=== PATIENT | male | born 1980 | race Caucasian/White ===

== ENCOUNTER 2019-06-27 13:51 | Emergency (ER) | payer BC ==
--- NOTE | 2019-06-27 14:00 | Emergency Department Record ---
History of Present Illness - General Chief complaint: Flank Pain Stated complaint: FLANK PAIN Time Seen by Provider: 06/27/19 14:00 Source: Patient Mode of Arrival: Ambulatory Limitations: No limitations - History of Present Illness Initial comments: pt here for l flank pain. he was at [facility] last night. they checked a urine and gave the pt a screen to strain urine and pain pills and flomax. there was no ct done and no labs done. MD Complaint: Other Location: Left flank Radiation: Suprapubic Severity: Moderate Quality: Aching Consistency: Constant Improves with: Medication Worsens with: None Reports: Nausea/vomiting - Related Data Home Medications Medication Instructions Recorded Confirmed Last Taken Aspirin [Aspirin EC] 81 mg PO DAILY 06/27/19 06/27/19 1 Day Ago ~06/26/19 Metoprolol Succinate [Toprol Xl] 25 mg PO DAILY 06/27/19 06/27/19 1 Day Ago ~06/26/19 Previous Rx's Medication Instructions Recorded Hydrocodone/Acetaminophen [[place] 1 each PO Q6HR #12 tablet 06/27/19 5-325 Tablet] Allergies Allergy/AdvReac Type Severity Reaction Status Date / Time codeine Allergy VOMITING Verified 06/27/19 14:06 Review of Systems Reviewed: No additional complaints except as noted below Constitutional: Reports: As per HPI. Denies: Chills, Fever, Malaise, Night sweats, Weakness, Weight change Eyes: Reports: As per HPI. Denies: Eye discharge, Eye pain, Photophobia, Vision change ENT: Reports: As per HPI. Denies: Congestion, Dental pain, Ear pain, Epistaxis, Hearing loss, Throat pain Respiratory: Reports: As per HPI. Denies: Cough, Dyspnea, Hemoptysis, Stridor, Wheezes Cardiovascular: Reports: As per HPI. Denies: Arrhythmia, Chest pain, Dyspnea on exertion, Edema, Murmurs, Orthopnea, Palpitations, Paroxysmal nocturnal dyspnea, Rheumatic Fever, Syncope Endocrine: Reports: As per HPI. Denies: Fatigue, Heat or cold intolerance, Polydipsia, Polyuria Gastrointestinal: Reports: As per HPI, Nausea. Denies: Abdominal pain, Constipation, Diarrhea, Hematemesis, Hematochezia, Melena, Vomiting Genitourinary: Reports: As per HPI. Denies: Dysuria, Frequency, Hematuria, Incontinence, Retention, Testicular pain, Testicular mass, Urgency Musculoskeletal: Reports: As per HPI. Denies: Arthralgia, Back pain, Gout, Joint swelling, Myalgia, Neck pain Skin: Reports: As per HPI. Denies: Bruising, Change in color, Change in hair/nails, Lesions, Pruritus, Rash Neurological: Reports: As per HPI. Denies: Abnormal gait, Confusion, Headache, Numbness, Paresthesias, Seizure, Tingling, Tremors, Vertigo, Weakness Psychiatric: Reports: As per HPI. Denies: Anxiety, Auditory hallucinations, Depression, Homicidal thoughts, Suicidal thoughts, Visual hallucinations Hematological/Lymphatic: Reports: As per HPI. Denies: Anemia, Blood Clots, Easy bleeding, Easy bruising, Swollen glands Past Medical History - SOCIAL HISTORY Smoking Status: Never smoker Alcohol Use: None Drug Use: None Family Medical History Any Significant Family History?: No Physical Exam - General General Appearance: Alert, Oriented x3, Cooperative, Moderate distress - Head Head exam: Normal inspection - Eye Eye exam: Normal appearance, PERRL, EOMI Pupils: Normal accommodation - ENT ENT exam: Normal exam, Mucous membranes moist, Normal external ear exam, Normal orophraynx Ear exam: Normal external inspection. negative: External canal tenderness Nasal Exam: Normal inspection. negative: Discharge, Sinus tenderness Mouth exam: Normal external inspection, Tongue normal Teeth exam: Normal inspection. negative: Dental caries Throat exam: Normal inspection. negative: Tonsillar erythema, Tonsillar exudate - Neck Neck exam: Normal inspection, Full ROM. negative: Tenderness - Respiratory Respiratory exam: Normal lung sounds bilaterally. negative: Respiratory distress - Cardiovascular Cardiovascular Exam: Regular rate, Normal rhythm, Normal heart sounds - GI/Abdominal GI/Abdominal exam: Soft, Normal bowel sounds. negative: Tenderness - Rectal Rectal exam: Deferred - exam: Deferred - Extremities Extremities exam: Normal inspection, Full ROM, Normal capillary refill. negative: Tenderness - Back Back exam: Reports: Normal inspection, Full ROM. Denies: Muscle spasm, Rash noted, Tenderness - Neurological Neurological exam: Alert, CN II-XII intact, Normal gait, Oriented X3 - Psychiatric Psychiatric exam: Normal affect, Normal mood - Skin Skin exam: Dry, Intact, Normal color, Warm Course - Reevaluation(s) Reevaluation #1: 06/27/19 16:19 pt feels better Medical Decision Making - Lab Data Result diagrams: 06/27/19 14:20 06/27/19 14:20 Disposition Disposition: Discharge Clinical Impression: Renal lithiasis Hydronephrosis Qualifiers: Hydronephrosis type: with ureteral calculous obstruction Qualified Code(s): N13.2 - Hydronephrosis with renal and ureteral calculous obstruction Disposition: Home, Self-Care Condition: (1) Good Instructions: Kidney Stones (ED), How to Strain Your Urine (ED) Additional Instructions: continue flomax. push fluids. continue norco as needed. follow up with dr smith. return sooner if worse. Prescriptions: Hydrocodone/Acetaminophen [[place] 5-325 Tablet] 1 each PO Q6HR #12 tablet Forms: Patient Portal Access Quality - Quality Measures Quality Measures: N/A - Blood Pressure Screening Does Patient Have Any of the Following: Active Dx of HTN Blood Pressure Classification: Hypertensive Reading Systolic Measurement: 183 Diastolic Measurement: 122 Screening for High Blood Pressure: Patient Exclusion, Hx of HTN [G9744]
[2019-06-27] MEDS ORDERED: ONDANSETRON HCL IV 4 MG/2 ML VIAL IV ONE (14:29)
[2019-06-27] MEDS ORDERED: KETOROLAC 30 MG/ML VIAL IVP ONE (14:29)
[2019-06-27] MEDS ORDERED: 0.9 % SODIUM CHLORIDE 1,000 ML BAG IV ONE ×2 (14:29→16:03)
[2019-06-27 14:39] LABS: ABSOLUTE NEUTROPHIL COUNT 8.81; BASO % 0.2 % (0-6); EOS % 1.8 % (0-6); GRAN % 68.3 % (47-80); HEMATOCRIT 47.4 % (42.0-52.0); LYMPH % 20.8 % (16-45); MEAN CELL VOLUME 87.3 fl (81-97); MEAN CORPUSCULAR HEMOGLOBIN 29.5 pg (27-33); MEAN CORPUSCULAR HGB CONC 33.8 g/dl (32-36); MEAN PLATELET VOLUME 10.9 fl (7.4-10.4); MONO % 8.9 % (0-9); PLATELET COUNT 232 K/uL (130-400); RED BLOOD COUNT 5.43 M/uL (4.40-5.70); RED CELL DISTRIBUTION WIDTH 13.1 % (11.5-14.5); WHITE BLOOD COUNT W/O DIFF 12.9 K/uL (4.2-12.2)
[2019-06-27 14:50] LABS: BLOOD UREA NITROGEN 17 mg/dL (6-20); CREATININE 1.1 mg/dL (0.7-1.2); EST GLOMERULAR FILTRATION RATE > 60 mL/min
[2019-06-27 14:53] LABS: GLUCOSE,RANDOM 178 mg/dL (74-109)
--- NOTE | 2019-06-27 15:40 | CT SCAN REPORT ---
EXAMINATION: CT Abdomen and Pelvis without IV Contrast EXAM DATE: 06/27/2019 3:23 PM TECHNIQUE: Standard protocol CT imaging of the abdomen and pelvis was performed without intravenous c ontrast. INDICATION: Left flank pain. COMPARISON: None ENCOUNTER: Not applicable CT ABDOMEN AND PELVIS FINDINGS: Lung Bases: There is a small less than 6 mm nodule in the anterior right lung base. There is minimal coarse strandy/dependent basilar atelectasis. The imaged lung bases otherwise are clear. Hepatobiliary: There is diffuse fatty infiltration of the liver. The liver otherwise appears unremark able. Postop cholecystectomy. There is no biliary dilatation. Pancreas: Mildly atrophic and partially fatty replaced. Otherwise unremarkable. Spleen: Normal. 2 cm splenule along the medial aspect of the lower pole. Adrenals: Normal. Kidneys, Ureters, & Bladder: There are several nonobstructing calyceal renal stones, the largest in t he lower pole the right kidney measuring around 3 mm. On images 166-167 an approximately 3 mm stone i s seen in the distal left ureter at the ureteral vesicle junction. There is mild dilatation of the mo re proximal left renal collecting system. There is no right ureterolithiasis or any right obstructive uropathy. The urinary bladder appears normal. Gastrointestinal: The bowel pattern is nonobstructive. Postop appendectomy. There is no bowel wall th ickening. There are no acute gastrointestinal findings. Reproductive Organs: Unremarkable. No pelvic mass. Lymphatic System: No abdominal or pelvic lymphadenopathy. Vasculature: No abdominal aortic aneurysm. Peritoneum: No free air. No free fluid. Abdominal wall & Musculoskeletal: Unremarkable abdominal wall. No hernia. No mass. Mild arthrosis/spo ndylosis. No lytic or blastic bony lesions. No acute bony findings. Assessment of the solid organs, soft tissues, and vascular structures is overall limited on noncontra st imaging, IMPRESSION: 1. 3 mm left UVJ stone with associated mild left hydroureteronephrosis. 2. Bilateral nephrolithiasis. 3. Fatty liver. 4. Postop cholecystectomy and appendectomy. 5. Small nodule in the anterior right lung base. No follow-up for the nodule is indicated if the jimmy ent is low risk for lung cancer. If high risk, a follow-up low dose noncontrast CT examination of the chest in 12 months to assess stability of the nodule is optional. Dictated by: Dawson Belle MD on 06/27/2019 3:29 PM. .
[2019-06-27 16:09] LABS: URINE APPEARANCE CLEAR; URINE BILIRUBIN NEGATIVE (NEGATIVE); URINE BLOOD LARGE (NEGATIVE); URINE COLOR YELLOW; URINE GLUCOSE (UA) NEGATIVE (NEGATIVE); URINE KETONE NEGATIVE (NEGATIVE); URINE LEUKOCYTE ESTERASE NEGATIVE (NEGATIVE); URINE NITRITE NEGATIVE (NEGATIVE); URINE UROBILINOGEN 0.2 E.U./dL (0.20 - 1.00)
[2019-06-27] MEDS ORDERED: HYDROMORPHONE HCL 2 MG/ML VIAL IVP ONE (16:20)
[2019-06-27 16:21] LABS: URINE EPITHELIAL CELLS 0 - 2 (FEW); URINE WBC NONE SEEN (0-2/hpf)
--- NOTE | 2019-06-27 17:00 | Emergency Department Record ---
History of Present Illness - General Chief complaint: Flank Pain Stated complaint: FLANK PAIN Time Seen by Provider: 06/27/19 14:00 Source: Patient Mode of Arrival: Ambulatory Limitations: No limitations - History of Present Illness Onset/Timin -: Days(s) Location: Left flank Radiation: Suprapubic Severity: Moderate Severity scale (1-10): 9 Quality: Aching Consistency: Constant Improves with: Medication Worsens with: None Reports: Nausea/vomiting - Related Data Home Medications Medication Instructions Recorded Confirmed Last Taken Aspirin [Aspirin EC] 81 mg PO DAILY 06/27/19 06/27/19 1 Day Ago ~06/26/19 Metoprolol Succinate [Toprol Xl] 25 mg PO DAILY 06/27/19 06/27/19 1 Day Ago ~06/26/19 Previous Rx's Medication Instructions Recorded Hydrocodone/Acetaminophen [[place] 1 each PO Q6HR #12 tablet 06/27/19 5-325 Tablet] Allergies Allergy/AdvReac Type Severity Reaction Status Date / Time codeine Allergy VOMITING Verified 06/27/19 14:06 Travel Screening - Travel/Exposure Within Last 30 Days Have you traveled within the last 30 days?: No - Travel/Exposure Within Last Year Have you traveled outside the [place] in the last year?: No - Additonal Travel Details Have you been exposed to anyone with a communicable illness?: No - Travel Symptoms Symptom Screening: None Review of Systems Constitutional: Reports: As per HPI. Denies: Chills, Fever, Malaise, Night s weats, Weakness, Weight change Eyes: Reports: As per HPI. Denies: Eye discharge, Eye pain, Photophobia, Vision change ENT: Reports: As per HPI. Denies: Congestion, Dental pain, Ear pain, Epistaxis, Hearing loss, Throat pain Respiratory: Reports: As per HPI. Denies: Cough, Dyspnea, Hemoptysis, Stridor, Wheezes Cardiovascular: Reports: As per HPI. Denies: Arrhythmia, Chest pain, Dyspnea on exertion, Edema, Murmurs, Orthopnea, Palpitations, Paroxysmal nocturnal dyspnea, Rheumatic Fever, Syncope Endocrine: Reports: As per HPI. Denies: Fatigue, Heat or cold intolerance, Polydipsia, Polyuria Gastrointestinal: Reports: As per HPI, Nausea. Denies: Abdominal pain, Constipation, Diarrhea, Hematemesis, Hematochezia, Melena, Vomiting Genitourinary: Reports: As per HPI. Denies: Dysuria, Frequency, Hematuria, Incontinence, Retention, Testicular pain, Testicular mass, Urgency Musculoskeletal: Reports: As per HPI. Denies: Arthralgia, Back pain, Gout, Joint swelling, Myalgia, Neck pain Skin: Reports: As per HPI. Denies: Bruising, Change in color, Change in hair/nails, Lesions, Pruritus, Rash Neurological: Reports: As per HPI. Denies: Abnormal gait, Confusion, Headache, Numbness, Paresthesias, Seizure, Tingling, Tremors, Vertigo, Weakness Psychiatric: Reports: As per HPI. Denies: Anxiety, Auditory hallucinations, Depression, Homicidal thoughts, Suicidal thoughts, Visual hallucinations Hematological/Lymphatic: Reports: As per HPI. Denies: Anemia, Blood Clots, Easy bleeding, Easy bruising, Swollen glands Past Medical History - SOCIAL HISTORY Smoking Status: Never smoker Alcohol Use: None Drug Use: None - RESPIRATORY Hx Respiratory Disorders: No - CARDIOVASCULAR Hx Cardio Disorders: Yes Hx Hypertension: Yes Hx Irregular Heartbeat: Yes (a-fib) - NEURO Hx Neuro Disorders: No - GI Hx GI Disorders: No - Hx Genitourinary Disorders: Yes Hx Kidney Stones: Yes - ENDOCRINE Hx Endocrine Disorders: No Hx Diabetes: No Hx Thyroid Disease: No - MUSCULOSKELETAL Hx Musculoskeletal Disorders: Yes Hx Arthritis: Yes - PSYCH Hx Psych Problems: No - HEMATOLOGY/ONCOLOGY Hx Hematology/Oncology Disorders: No Family Medical History Any Significant Family History?: No Physical Exam - General Limitations: No limitations Course Vital Signs 06/27/19 06/27/19 14:00 16:13 Temperature 97.6 F Pulse Rate 90 Pulse Rate [ 75 Pulse Ox Probe] Respiratory 20 18 Rate Blood Pressure 183/122 Blood Pressure 142/84 [Right Arm] Pulse Ox 97 98 Medical Decision Making - Lab Data Result diagrams: 06/27/19 14:20 06/27/19 14:20 Lab Results 06/27/19 06/27/19 06/27/19 Range/Units 14:20 14:20 16:09 WBC 12.9 H (4.2-12.2) K/uL RBC 5.43 (4.40-5.70) M/uL Hgb 16.0 (14.0-18.0) gm/dl Hct 47.4 (42.0-52.0) % MCV 87.3 (81-97) fl MCH 29.5 (27-33) pg MCHC 33.8 (32-36) g/dl RDW 13.1 (11.5-14.5) % Plt Count 232 (130-400) K/uL MPV 10.9 H (7.4-10.4) fl Gran % 68.3 (47-80) % Lymphocytes % 20.8 (16-45) % Monocytes % 8.9 (0-9) % Eosinophils % 1.8 (0-6) % Basophils % 0.2 (0-6) % Absolute Neutrophils 8.81 Sodium 140 (136-145) mmol/L Potassium 3.8 (3.4-4.5) mmol/L Chloride 101 (98-107) mmol/L Carbon Dioxide 24.0 (22-29) mmol/L Anion Gap 15.0 (7-16) BUN 17 (6-20) mg/dL Creatinine 1.1 (0.7-1.2) mg/dL Estimated GFR > 60 mL/min Random Glucose 178 H (74-109) mg/dL Calcium 9.5 (8.6-10.0) mg/dL Urine Color Yellow Urine Appearance Clear Urine pH 5.5 (5.0-8.0) Ur Specific [place] >= 1.030 (1.002-1.030) Urine Protein 30 mg/dl H (NEGATIVE) Urine Glucose (UA) Negative (NEGATIVE) Urine Ketones Negative (NEGATIVE) Urine Blood Large H (NEGATIVE) Urine Nitrite Negative (NEGATIVE) Urine Bilirubin Negative (NEGATIVE) Urine Urobilinogen 0.2 (0.20 - 1.00) E.U./dL Ur Leukocyte Esterase Negative (NEGATIVE) Urine RBC 10 - 15 (NONE SEEN) Urine WBC None seen (0-2/hpf) Ur Epithelial Cells 0 - 2 (FEW) Disposition Disposition: Discharge Clinical Impression: Renal lithiasis Hydronephrosis Qualifiers: Hydronephrosis type: with ureteral calculous obstruction Qualified Code(s): N13.2 - Hydronephrosis with renal and ureteral calculous obstruction Disposition: Home, Self-Care Condition: (1) Good Instructions: Kidney Stones (ED), How to Strain Your Urine (ED) Additional Instructions: continue flomax. push fluids. continue norco as needed. follow up with dr smith. return sooner if worse. Prescriptions: Hydrocodone/Acetaminophen [[place] 5-325 Tablet] 1 each PO Q6HR #12 tablet Referrals: Rohit Smith M.D. [MEDICAL DOCTOR] - [facility] [Provider Group] Forms: Patient Portal Access Quality - Quality Measures Quality Measures: N/A - Blood Pressure Screening Does Patient Have Any of the Following: Active Dx of HTN Blood Pressure Classification: Hypertensive Reading Systolic Measurement: 183 Diastolic Measurement: 122 Screening for High Blood Pressure: Patient Exclusion, Hx of HTN [G9744]
== END 2019-06-27 17:07 | disposition home or self-care (01) ==
LOC: ER 13:51
DX: N13.2 Hydronephrosis with renal and ureteral calculous obstruction (principal); R11.2 Nausea with vomiting, unspecified; I10 Essential (primary) hypertension
CPT/HCPCS: 74176; 80048; 81001; 85025; 96361; 96374; 96375; 99284; J1885; J2405; J7030

== ENCOUNTER 2019-08-02 07:04 | Emergency (ER) | payer BC ==
[2019-08-02] MEDS ORDERED: KETOROLAC 30 MG/ML VIAL IVP ONE (07:20)
[2019-08-02] MEDS ORDERED: 0.9 % SODIUM CHLORIDE 1,000 ML BAG IV ONE (07:20)
--- NOTE | 2019-08-02 07:21 | Emergency Department Record ---
History of Present Illness - General Stated Complaint: KIDNEY STONES Time Seen by Provider: 08/02/19 07:07 Source: Patient Mode of Arrival: Ambulatory Limitations: No limitations - History of Present Illness Initial Comments: 39 yo male presents with right sided flank pain to the groin. The onset was this morning. The pain is sharp. The pain was 12/10 at home and is now 4/10. He has history of passing many renal stones in the past. He has had a stent in the past and retrieval surgery. He passed a left sided small stone last month. No fever. He had some nausea that is resolved. No visible hematuria. No rash. He was given a referral for urology in May but he has not had any appointments yet. MD Complaint: Abdominal pain, Flank pain -: Hour(s) Location: R Flank Radiation: R flank Migration to: R Flank Severity: Moderate Quality: Aching Improves With: Nothing Worsens With: Nothing Context: Other Associated Symptoms: Anorexia - Related Data Allergies Allergy/AdvReac Type Severity Reaction Status Date / Time codeine AdvReac VOMITING Verified 08/02/19 07:10 Review of Systems Constitutional: Denies: Chills, Fever, Malaise, Weakness Eyes: Denies: Eye discharge ENT: Denies: Congestion Respiratory: Denies: Cough Cardiovascular: Denies: Chest pain Endocrine: Denies: Fatigue Gastrointestinal: Reports: Abdominal pain, Nausea. Denies: Diarrhea Genitourinary: Denies: Dysuria, Hematuria, Retention, Urgency Musculoskeletal: Reports: Back pain. Denies: Arthralgia, Myalgia Skin: Denies: Bruising, Rash Neurological: Denies: Headache Psychiatric: Denies: Anxiety Hematological/Lymphatic: Denies: Easy bleeding, Easy bruising Past Medical History - SOCIAL HISTORY Smoking Status: Never smoker Drug Use: None - RESPIRATORY Hx Respiratory Disorders: No - CARDIOVASCULAR Hx Cardio Disorders: Yes Hx Hypertension: Yes Hx Irregular Heartbeat: Yes (a-fib) - NEURO Hx Neuro Disorders: No - GI Hx GI Disorders: No - Hx Genitourinary Disorders: Yes Hx Kidney Stones: Yes - ENDOCRINE Hx Endocrine Disorders: No Hx Diabetes: No Hx Thyroid Disease: No - MUSCULOSKELETAL Hx Musculoskeletal Disorders: Yes Hx Arthritis: Yes - PSYCH Hx Psych Problems: No - HEMATOLOGY/ONCOLOGY Hx Hematology/Oncology Disorders: No Physical Exam - General General Appearance: Alert, Oriented x3, Cooperative, No acute distress Limitations: No limitations - Head Head exam: Atraumatic, Normal inspection - Eye Eye exam: Normal appearance. negative: Conjunctival injection - ENT ENT exam: Normal exam Ear exam: Normal external inspection Nasal Exam: Normal inspection Mouth exam: Normal external inspection - Neck Neck exam: Normal inspection - Respiratory Respiratory exam: Normal lung sounds bilaterally - Cardiovascular Cardiovascular Exam: Regular rate, Normal rhythm, Normal heart sounds - GI/Abdominal GI/Abdominal exam: Soft. negative: Guarding, Tenderness - Rectal Rectal exam: Deferred - exam: Deferred - Extremities Extremities exam: Normal inspection - Back Back exam: Reports: Normal inspection, Full ROM. Denies: CVA tenderness (R), Tenderness - Neurological Neurological exam: Alert, Oriented X3 - Psychiatric Psychiatric exam: Normal affect, Normal mood. negative: Agitated, Anxious - Skin Skin exam: Dry, Intact, Normal color, Warm. negative: Cyanosis, Diaphoretic, Mottled Course - Reevaluation(s) Reevaluation #1: 08/02/19 07:24 The EMR was reviewed from 06.27.19. Multiple small bilateral stones. Active stone on the L at that time. 08/02/19 07:36 The CBC was reviewed No significant changes The BMP was reviewed Normal renal function and GFR. Glucose is 168 08/02/19 08:00 The UA is negative for infection 08/02/19 08:16 The patient is comfortable with well controlled pain The labs were discussed. He is working with his PCP on diet control of his glucose 08/02/19 08:38 The US was reviewed. No current obstructing R ureteral stone. We discussed the results of the tests and questions were answered. The patient is doing well and is comfortable with DC. We discussed at length reasons to immediately return to the ED as well as close follow up. The patient will call the PCP for close follow up of this ED visit to review this visit and the tests performed DC vitals were reviewed. The patient was given a copy of the radiology reports to review with their family doctor for follow up Medical Decision Making - Lab Data Result diagrams: 08/02/19 07:12 08/02/19 07:12 Disposition Disposition: Discharge Clinical Impression: Renal lithiasis Disposition: Home, Self-Care Condition: (1) Good Instructions: Renal Colic (ED) Additional Instructions: Review this ER visit and the tests performed with your family doctor You will need to have your blood sugar rechecked with your family doctor Return to the ER for a recheck immediately if worse, any new concerns or questions Take the prescriptions provided as directed You have been referred again to the [facility] Referrals: Rohit Sy M.D. [MEDICAL DOCTOR] - [facility] [Provider Group] Time of Disposition: 08:39 Quality - Quality Measures Quality Measures: N/A - Blood Pressure Screening Does Patient Have Any of the Following: No Blood Pressure Classification: Hypertensive Reading Systolic Measurement: 150 Diastolic Measurement: 105 Screening for High Blood Pressure: < Pre-Hypertensive BP, F/U Documented > [G8 950] Pre-Hypertensive Follow-up Interventions: Referral to alternative/primary care provider.
[2019-08-02 07:23] LABS: ABSOLUTE NEUTROPHIL COUNT 5.34; BASO % 0.3 % (0-6); EOS % 3.2 % (0-6); HEMATOCRIT 47.6 % (42.0-52.0); HEMOGLOBIN 15.8 gm/dl (14.0-18.0); LYMPH % 25.8 % (16-45); MEAN CELL VOLUME 88.3 fl (81-97); MEAN CORPUSCULAR HEMOGLOBIN 29.3 pg (27-33); MEAN CORPUSCULAR HGB CONC 33.2 g/dl (32-36); MEAN PLATELET VOLUME 10.9 fl (7.4-10.4); MONO % 9.7 % (0-9); PLATELET COUNT 225 K/uL (130-400); RED BLOOD COUNT 5.39 M/uL (4.40-5.70); WHITE BLOOD COUNT W/O DIFF 8.8 K/uL (4.2-12.2)
[2019-08-02 07:32] LABS: BLOOD UREA NITROGEN 18 mg/dL (6-20); CREATININE 1.1 mg/dL (0.7-1.2); EST GLOMERULAR FILTRATION RATE > 60 mL/min
[2019-08-02 07:34] LABS: GLUCOSE,RANDOM 168 mg/dL (74-109)
[2019-08-02 07:54] LABS: URINE APPEARANCE CLEAR; URINE BILIRUBIN NEGATIVE (NEGATIVE); URINE BLOOD LARGE (NEGATIVE); URINE COLOR YELLOW; URINE GLUCOSE (UA) NEGATIVE (NEGATIVE); URINE KETONE NEGATIVE (NEGATIVE); URINE LEUKOCYTE ESTERASE NEGATIVE (NEGATIVE); URINE NITRITE NEGATIVE (NEGATIVE); URINE PROTEIN TRACE (NEGATIVE); URINE UROBILINOGEN 0.2 E.U./dL (0.20 - 1.00)
[2019-08-02 08:09] LABS: URINE MUCUS LIGHT; URINE RBC 36 - 50 (NONE SEEN); URINE YEAST 2+
--- NOTE | 2019-08-02 08:18 | ULTRASOUND REPORT ---
EXAMINATION: RENAL EXAM DATE: 08/02/2019 8:11 AM TECHNIQUE: Renal INDICATION: right flank pain, hx of stones COMPARISON: None ENCOUNTER: Initial FINDINGS: Right kidney 11.0 x 4.0 x 5.0 cm. Left kidney 11.0 x 5.0 x 5.0 cm. 9 mm probable nonobstructing lower pole left renal calculus. No renal masses. No obstructive uropathy. Bladder unremarkable. 13 mL post voiding residual. Prostatic volume 13.6 cc IMPRESSION: 1. Nonobstructing 9 mm left renal calculus 2. 13 mL post voiding residual 3. Prostatic volume 13.6 cc Dictated by: Breezy Rose MD on 08/02/2019 8:11 AM. .
== END 2019-08-02 09:04 | disposition home or self-care (01) ==
LOC: ER 07:04
DX: N20.0 Calculus of kidney (principal); R11.0 Nausea; I10 Essential (primary) hypertension; I48.91 Unspecified atrial fibrillation; Z87.442 Personal history of urinary calculi
CPT/HCPCS: 76775; 80048; 81001; 85025; 96374; 99284; J1885; J7030